=== PATIENT | male | born 1960 | race Two or more races ===

== ENCOUNTER 2019-02-26 18:44 | Inpatient (IN) | payer OTHER ==
[~2019-02-26] VITALS: Ht 185.4 cm; Wt 91.9 kg
[2019-03-07 07:58] VITALS: BP 148/81
== END 2019-03-07 12:05 | disposition home or self-care (01) | DRG 853 ==
LOC: ED 21:00 → EDIP 21:01 → 3NE 22:32 → DCLOUNGE 03-07 11:35
PROVIDERS: ADMIT Internal Medicine; ATTEND Internal Medicine
PROC: 0KBV0ZZ Excision of Right Foot Muscle, Open Approach (ICD-10-PCS; principal; 2019-03-01)
PROC: 02HV33Z Insertion of Infusion Device into Superior Vena Cava, Percutaneous Approach (ICD-10-PCS; 2019-03-04)
PROC: B5181ZA Fluoroscopy of Superior Vena Cava using Low Osmolar Contrast, Guidance (ICD-10-PCS; 2019-03-04)
DX: A40.8 Other streptococcal sepsis (principal); N17.0 Acute kidney failure with tubular necrosis; L03.115 Cellulitis of right lower limb; M00.9 Pyogenic arthritis, unspecified; M86.179 Other acute osteomyelitis, unspecified ankle and foot; E87.1 Hypo-osmolality and hyponatremia; L02.611 Cutaneous abscess of right foot; D63.8 Anemia in other chronic diseases classified elsewhere; E11.22 Type 2 diabetes mellitus with diabetic chronic kidney disease; E11.40 Type 2 diabetes mellitus with diabetic neuropathy, unspecified; E11.621 Type 2 diabetes mellitus with foot ulcer; E11.65 Type 2 diabetes mellitus with hyperglycemia; E11.69 Type 2 diabetes mellitus with other specified complication; I12.9 Hypertensive chronic kidney disease with stage 1 through stage 4 chronic kidney disease, or unspecified chronic kidney disease; L97.519 Non-pressure chronic ulcer of other part of right foot with unspecified severity; N18.9 Chronic kidney disease, unspecified; Z83.3 Family history of diabetes mellitus; F17.210 Nicotine dependence, cigarettes, uncomplicated; F10.10 Alcohol abuse, uncomplicated; Y90.9 Presence of alcohol in blood, level not specified; Z71.41 Alcohol abuse counseling and surveillance of alcoholic; G89.29 Other chronic pain; M25.519 Pain in unspecified shoulder
CPT/HCPCS: 36415; 36573; 71045; 80048; 80053; 82962; 83036; 83605; 84145; 85025; 85651; 86140; 87040; 87070; 87075; 87077; 87147; 87181; 87186; 87205; 99285; G0378; J0295; J0690; J1335; J1650; J2250; J2405; J2543; J2704; J3010; J3370; C1751; J1815; J7030; J7050

== ENCOUNTER → 2020-08-12 | Outpatient (CLI) | payer OTHER ==
[~2020-08-12] MED LIST: ERTA1VIA4 IV; GLIP5TAB10 PO; LISI-167 PO; METF500T17 PO
== END | disposition home or self-care (01) ==
LOC: RAD 09:15
PROVIDERS: ATTEND Internal Medicine Infectious Disease
DX: Z45.2 Encounter for adjustment and management of vascular access device (principal); E11.621 Type 2 diabetes mellitus with foot ulcer; L97.519 Non-pressure chronic ulcer of other part of right foot with unspecified severity; M86.8X7 Other osteomyelitis, ankle and foot; F12.90 Cannabis use, unspecified, uncomplicated; Z79.2 Long term (current) use of antibiotics; Z72.89 Other problems related to lifestyle; Z79.4 Long term (current) use of insulin
CPT/HCPCS: 36573; C1751

== ENCOUNTER 2020-08-25 07:26 | Outpatient (CLI) | payer OTHER | END 2020-08-25 23:59 | disposition home or self-care (01) | LOC: CVU 07:26 | PROVIDERS: ATTEND Internal Medicine Infectious Disease | DX: Z02.9 Encounter for administrative examinations, unspecified (principal) ==